=== PATIENT | female | born 1985 | race Caucasian/White ===

== ENCOUNTER 2016-09-09 11:50 | Emergency (ER) | payer SELFPAY ==
[~2016-09-09] VITALS: Ht 162.6 cm; Wt 57.7 kg
[~2016-09-09 11:50] MED LIST: IBUP800T PO; OXYC-302 PO; PREN1TAB25 PO
[2016-09-09 11:53] VITALS: BP 105/69
[2016-09-09] MEDS ORDERED: DIPH,PERTUSS(ACELL),TET VAC/PF 0.5 ML IM-VACC ONE ×2 (12:30→12:45)
== END 2016-09-09 13:00 | disposition home or self-care (01) ==
LOC: ED 12:54
DX: S61.251A Open bite of left index finger without damage to nail, initial encounter (principal); S61.253A Open bite of left middle finger without damage to nail, initial encounter; Z23 Encounter for immunization; F41.1 Generalized anxiety disorder; W54.0XXA Bitten by dog, initial encounter; Y93.89 Activity, other specified; Y99.8 Other external cause status; Y92.009 Unspecified place in unspecified non-institutional (private) residence as the place of occurrence of the external cause
CPT/HCPCS: 90471; 90715; 93005